=== PATIENT | female | born 1935 | race Caucasian/White ===

== ENCOUNTER 2017-01-07 12:43 | Emergency (ER) | payer MEDICARE, OTHER ==
--- NOTE | 2017-01-07 14:55 | ED Physician Documentation ---
PD HPI NVD - Stated complaint Stated Complaint: WEAKNESS - Chief complaint Chief Complaint: General - History obtained from History obtained from: Patient - History of Present Illness Timing - onset: How many days ago (4-5 days of general weakness, nausea, poor appetite. Some upper abd discomfort. No vomiting.) Timing - duration: Days Timing - details: Gradual onset, Still present, Constant Associated symptoms: Abdominal pain (fullness feeling upper abd.), Loss of appetite. No: Fever, Chest pain, Dysuria Contributing factors: Recent antibiotics (Bactrim for UTI). No: Sick contact, Bad food, Travel, Alcohol use Worsened by: Eating (gets full feeling with just few bites of food.) Similar symptoms before: Has not had sx before Recently seen: Clinic (today in PMD office and referred to ED.) Review of Systems Constitutional: denies: Fever, Chills, Myalgias Nose: denies: Rhinorrhea / runny nose, Congestion Throat: denies: Sore throat Cardiac: denies: Chest pain / pressure, Palpitations Respiratory: denies: Dyspnea, Cough GI: reports: Abdominal Pain, Nausea. denies: Abdominal Swelling, Vomiting, Constipation, Diarrhea, Bloody / black stool : denies: Dysuria, Frequency Skin: denies: Rash, Lesions Musculoskeletal: denies: Back pain Neurologic: reports: Generalized weakness. denies: Focal weakness, Numbness, Altered mental status, Headache, Head injury PD PAST MEDICAL HISTORY - Past Medical History Cardiovascular: Hypertension, High cholesterol Respiratory: None Endocrine/Autoimmune: HyPOthyroidism GI: GERD : None HEENT: None Psych: Depression, Anxiety Musculoskeletal: None Derm: None - Past Surgical History General: Hiatal hernia repair /[employer]: Dilation and currettage HEENT: Cataracts - Present Medications Home Medications: Ambulatory Orders Medication Instructions Recorded Confirmed Cholecalciferol (Vitamin D3) 1 tab PO DAILY 06/16/14 06/17/14 [Vitamin D-3] Dicyclomine [Bentyl] 20 mg PO DAILY 06/16/14 06/17/14 Esomeprazole Magnesium [Nexium] 40 mg PO DAILY 06/16/14 06/17/14 Estradiol 2 mg PO DAILY 06/16/14 06/17/14 Ferrous Sulfate [Iron] 325 mg PO DAILY 06/16/14 06/17/14 Folic Acid 1 mg PO DAILY 06/16/14 06/17/14 Glimepiride [Amaryl] 2 mg PO DAILY 06/16/14 06/17/14 Levothyroxine [Synthroid] 112 mg PO DAILY 06/16/14 06/17/14 Minocycline [Minocycline HCl] 100 mg PO DAILY 06/16/14 06/17/14 Nortriptyline [Pamelor] 10 mg PO DAILY 06/16/14 06/17/14 PARoxetine [Paxil] 10 mg PO DAILY 06/16/14 06/17/14 Rosuvastatin Calcium [Crestor] 20 mg PO DAILY 06/16/14 06/17/14 medroxyPROGESTERone [Provera] 2.5 mg PO DAILY 06/16/14 06/17/14 Ondansetron HCl [Zofran] 4 mg PO Q6H PRN #20 tablet 01/07/17 Sucralfate 1 gm PO BID #20 tablet 01/07/17 - Allergies Allergies/Adverse Reactions: Allergies Allergy/AdvReac Type Severity Reaction Status Date / Time No Known Drug Allergies Allergy Verified 06/16/14 13:36 - Living Situation Living Situation: reports: With spouse/s.o. Living Arrangement: reports: At home - Social History Does the pt smoke?: No Smoking Status: Never smoker Does the pt drink ETOH?: No Does the pt have substance abuse?: No - Family History Family history: reports: Non contributory PD ED PE NORMAL - Vitals Vital signs reviewed: Yes - General General: Alert and oriented X 3, No acute distress, Well developed/nourished, Other (pale, almost lbuish color to skin. No dyspnea.) - HEENT HEENT: Ears normal, Pharynx benign. No: Moist mucous membranes - Neck Neck: Supple, no meningeal sign, No adenopathy - Cardiac Cardiac: RRR, No murmur - Respiratory Respiratory: Clear bilaterally - Abdomen Abdomen: Normal bowel sounds, Soft, Non distended, No organomegaly, Other ( tender epigastric area) - Back Back: No CVA TTP - Derm Derm: Warm and dry - Extremities Extremities: Normal ROM s pain, No edema, No calf tenderness / cord - Neuro Neuro: Alert and oriented X 3, No motor deficit, Normal speech - Psych Psych: Normal mood Results - Vitals Vitals: Oxygen O2 Source Room air - Labs Labs: Laboratory Tests 01/07/17 01/07/17 01/07/17 15:35 15:35 16:45 WBC 9.3 RBC 4.71 Hgb 14.2 Hct 43.2 MCV 91.7 MCH 30.2 MCHC 32.9 RDW 14.2 Plt Count 192 MPV 9.0 Neut # 7.0 H Lymph # 1.8 Turner # 0.4 Eos # 0.0 Baso # 0.1 Absolute Nucleated RBC 0.00 Nucleated RBCs 0.0 Bld Gas Analysis Time Sample Site ABG pH ABG pCO2 ABG pO2 ABG HCO3 ABG Total CO2 ABG O2 Saturation ABG Base Excess ABG Hemoglobin ABG Oxyhemoglobin ABG Carboxyhemoglobin ABG Methemoglobin Omer Test Room Air Sodium 133 L Potassium 3.5 Chloride 93 L Carbon Dioxide 24 Anion Gap 16.0 H BUN 15 Creatinine 1.2 H Estimated GFR (MDRD) 43 L Glucose 112 H Lactic Acid 1.4 Calcium 9.8 Magnesium 2.1 Total Bilirubin 1.0 AST 26 ALT 16 Alkaline Phosphatase 81 Total Protein 7.9 Albumin 4.1 Globulin 3.8 Albumin/Globulin Ratio 1.1 Lipase 18 L Urine Color Urine Clarity Urine pH Ur Specific [place] Urine Protein Urine Glucose (UA) Urine Ketones Urine Occult Blood Urine Nitrite Urine Bilirubin Urine Urobilinogen Ur Leukocyte Esterase Ur Microscopic Review Urine Culture Comments 01/07/17 01/07/17 01/07/17 17:40 17:40 17:55 WBC RBC Hgb Hct MCV MCH MCHC RDW Plt Count MPV Neut # Lymph # Turner # Eos # Baso # Absolute Nucleated RBC Nucleated RBCs Bld Gas Analysis Time 1740 1740 Sample Site LEFT RADIAL ABG pH 7.42 ABG pCO2 36 ABG pO2 71 L ABG HCO3 22.5 ABG Total CO2 23.6 ABG O2 Saturation 93 L ABG Base Excess -1.5 ABG Hemoglobin 12.8 ABG Oxyhemoglobin 93 L ABG Carboxyhemoglobin 0.2 ABG Methemoglobin 0.3 Omer Test POSITIVE Room Air YES Sodium Potassium Chloride Carbon Dioxide Anion Gap BUN Creatinine Estimated GFR (MDRD) Glucose Lactic Acid Calcium Magnesium Total Bilirubin AST ALT Alkaline Phosphatase Total Protein Albumin Globulin Albumin/Globulin Ratio Lipase Urine Color YELLOW Urine Clarity CLEAR Urine pH 5.5 Ur Specific [place] 1.025 Urine Protein NEGATIVE Urine Glucose (UA) NEGATIVE Urine Ketones >=80 H Urine Occult Blood TRACE-LYSE Urine Nitrite NEGATIVE Urine Bilirubin NEGATIVE Urine Urobilinogen 0.2 (NORMAL) Ur Leukocyte Esterase NEGATIVE Ur Microscopic Review NOT INDICATED Urine Culture Comments NOT INDICATED - Rads (name of study) abd CT Radiology: Prelim report reviewed, EMP read contemporaneously (no obstruction nor masses. prior mediastinal surgery. Contracted GB. No acute processes. ) PD MEDICAL DECISION MAKING - ED course Complexity details: re-evaluated patient (she feels better with fluids and zofran, and is feeling hungry and wants to go home. ), considered differential ( Her sats are a little low at times, down to 93% but then up and down some. She did appear bluish/pale though. ABG is good though, with some low sats 91% but not enough for oxygen. Methemoglobin normal (recently on Bactrim).), d/w patient Departure - Departure Disposition: 01 Home, Self Care Clinical Impression: Nausea, Weakness Gastritis Qualifiers: Gastritis type: unspecified gastritis Chronicity: acute Gastritis bleeding: without bleeding Qualified Code(s): K29.00 - Acute gastritis without bleeding Condition: Stable Record reviewed to determine appropriate education?: Yes Instructions: ED Gastritis Follow-Up: Zachary Barkley MD [Primary Care Provider] - Prescriptions: Sucralfate 1 gm PO BID #20 tablet Ondansetron HCl [Zofran] 4 mg PO Q6H PRN #20 tablet PRN Reason: Nausea / Vomiting Comments: Continue usual medications. Ondansetron as needed for nausea. I think he may have an irritation of your stomach called gastritis and so add sucralfate tablet twice daily to help coat the stomach better. Small frequent fluids and foods. Follow-up with her primary care later this week, call for an appointment. Discharge Date/Time: 01/07/17 18:53
[2017-01-07] MEDS ORDERED: FAMOTIDINE 20 MG/50 ML 50 ML IV ONE (15:17)
[2017-01-07] MEDS: SODIUM CHLORIDE 0.9% 1,000 ML IV ONE (15:17)
[2017-01-07] MEDS ORDERED: ONDANSETRON 4 MG/2 ML VIAL ONE (15:17)
[2017-01-07] MEDS: ONDANSETRON 4 MG/2 ML VIAL IVP STA (15:19)
[2017-01-07] MEDS: FAMOTIDINE 20 MG/50 ML 50 ML IV ONE (15:19)
[2017-01-07 15:45] LABS: BASOPHILS # (AUTO) 0.1 10^3/uL (0.0-0.1); BASOPHILS % (AUTO) 0.7 %; EOSINOPHILS % (AUTO) 0.3 %; HCT - HEMATOCRIT 43.2 % (37.0-47.0); HGB - HEMOGLOBIN 14.2 g/dL (12.0-16.0); LYMPHOCYTES # (AUTO) 1.8 10^3/uL (1.5-3.5); LYMPHOCYTES % (AUTO) 19.4 %; MEAN CORPUSCULAR HEMOGLOBIN 30.2 pg (27.0-31.0); MEAN CORPUSCULAR HGB CONC 32.9 g/dL (32.0-36.0); MEAN CORPUSCULAR VOLUME 91.7 fL (81.0-99.0); MONOCYTES # (AUTO) 0.4 10^3/uL (0.0-1.0); MONOCYTES % (AUTO) 4.7 %; NEUTROPHILS % (AUTO) 74.9 %; RED BLOOD COUNT 4.71 10^6/uL (4.20-5.40); RED CELL DISTRIBUTION WIDTH 14.2 % (12.0-15.0); UNCORRECTED WHITE BLOOD COUNT 9.3 x10^3/uL; WHITE BLOOD COUNT 9.3 x10^3/uL (4.8-10.8)
[2017-01-07 16:00] LABS: ALBUMIN/GLOBULIN RATIO 1.1 (1.0-2.2); CALCIUM 9.8 mg/dL (8.5-10.3); CREATININE 1.2 mg/dL (0.4-1.0); MAGNESIUM 2.1 mg/dL (1.7-2.8); POTASSIUM 3.5 mmol/L (3.5-5.0); TOTAL PROTEIN 7.9 g/dL (6.7-8.2)
[2017-01-07] MEDS: IOPAMIDOL-300 100 ML VIAL IVP ONE (17:05)
[2017-01-07 17:55] LABS: HEMOGLOBIN TOTAL, ARTERIAL WB 12.8 g/dL (12.0-18.0)
--- NOTE | 2017-01-07 17:56 | CT Preliminary Report ---
Exam: CT Abdomen/Pelvis W/ IMPRESSION: 1. Moderate size hiatal hernia. 2. Previous mediastinal surgery, contracted gallbladder, and other chronic or incidental findings. [facility] SITE ID: [id number]
--- NOTE | 2017-01-07 17:59 | CT Report ---
EXAM: CT ABDOMEN AND PELVIS EXAM DATE: 01/07/2017 05:17 PM. CLINICAL HISTORY: Nausea and upper abd pain for 4 days. COMPARISONS: None. TECHNIQUE: Routine helical CT imaging was performed through the abdomen and pelvis. IV contrast: 50 c c [id number]. Enteric contrast: No. Reconstructions: Coronal and sagittal. In accordance with CT protocol optimization, one or more of the following dose reduction techniques w ere utilized for this exam: automated exposure control, adjustment of mA and/or KV based on patient s ize, or use of iterative reconstructive technique. FINDINGS: Lung Bases: Clear. No effusion. Moderate-sized hiatal hernia. Previous mediastinal surgery. At least one vessel coronary artery calcification. Liver: Normal. No masses. Gallbladder/Bile Ducts: Contracted, grossly negative. No ductal dilation. Spleen: Normal. Pancreas: Normal. Adrenal Glands: Normal. Kidneys: Normal. No masses or hydronephrosis. Peritoneal Cavity/Bowel: Mild colonic diverticulosis. No diverticulitis at this time. No bowel dilati on, free fluid, free air, or lymphadenopathy. The appendix is well visualized and normal. Pelvic Organs: Unremarkable urinary bladder. Atrophic uterus. Vasculature: No aneurysms or other significant abnormality. Bones: Degenerative changes. Other: None. IMPRESSION: 1. Moderate size hiatal hernia. 2. Previous mediastinal surgery, contracted gallbladder, and other chronic or incidental findings. [facility] Referring Provider Line: [phone] SITE ID: [id number]
[2017-01-07 18:10] LABS: PH,URINE 5.5 PH (5.0-7.5)
[2017-01-07 18:12] LABS: ABG ANALYSIS TIME 1740; ABG BASE EXCESS -1.5 mmol/L (-2.0-3.0); ABG HCO3 22.5 mmol/L (22.0-26.0); ABG OXYGEN SATURATION 93 % (94-98); ABG PCO2 36 mmHg (34-45); ABG PH 7.42 (7.35-7.45); ABG PO2 71 mmHg (80-100); ABG SITE OF DRAW LEFT RADIAL; ABG TCO2 23.6 MMOL/L (21.0-29.0); ALLEN TEST POSITIVE
[2017-01-07 18:13] LABS: BILIRUBIN,URINE NEGATIVE (NEGATIVE); UA CHARGE (STRIP ONLY) YES; UR CULTURE IF IND NOT INDICATED
[2017-01-07 18:13] LABS: ABG ROOM AIR YES
[2017-01-07 18:47] VITALS: BP 112/56
== END 2017-01-07 18:53 | disposition home or self-care (01) ==
LOC: ED 12:43
DX: K29.00 Acute gastritis without bleeding (principal); K44.9 Diaphragmatic hernia without obstruction or gangrene; R11.0 Nausea; R53.1 Weakness; I10 Essential (primary) hypertension; E78.00 Pure hypercholesterolemia, unspecified; E03.9 Hypothyroidism, unspecified; K21.9 Gastro-esophageal reflux disease without esophagitis
CPT/HCPCS: 36415; 74177; 80053; 81003; 82375; 82803; 83605; 83690; 83735; 85025; 96365; 96375; 99284; Q9967; 81001; 87086

== ENCOUNTER 2017-08-14 20:19 | Outpatient (CLI) | payer MEDICARE, OTHER | END 2017-08-14 20:20 | disposition short-term general hospital (02) | LOC: EMS 20:19 | PROVIDERS: ATTEND Surgery | DX: R53.1 Weakness (principal); W18.11XA Fall from or off toilet without subsequent striking against object, initial encounter; Y92.002 Bathroom of unspecified non-institutional (private) residence as the place of occurrence of the external cause | CPT/HCPCS: A0425; A0427; A0888 ==